=== PATIENT | male | born 1995 | race Caucasian/White ===

== ENCOUNTER 2018-04-20 05:59 | Emergency (ER) | payer SELFPAY ==
[2018-04-20 05:59] VITALS: BP 00/00; Ht 180.3 cm
== END 2018-04-20 10:26 | disposition expired ==
LOC: ED 05:59 → EDBD 05:59 → ED 10:26
DX: I46.9 Cardiac arrest, cause unspecified (principal); Z98.890 Other specified postprocedural states
CPT/HCPCS: 32551